=== PATIENT | male | born 1970 | race Caucasian/White ===

== ENCOUNTER 2020-02-13 08:57 | Outpatient (CLI) | payer OTHER, SELFPAY ==
--- NOTE | 2020-02-13 11:00 | NEURO_ITS ---
Patient Number: [id number] Impression: # Complains of severe back pain and leg pain. # Normal nerve conduction study including F-waves. # Normal needle/EMG exam without myotonia or denervation potentials. # Clinical correlation recommended. Nerve Conduction Studies Anti Sensory Summary Table Stim Site NR Peak (ms) P-T Amp (?V) Site1 Site2 Delta-P (ms) Dist (cm) Phill (m/s) Left Sup Fibular Anti Sensory (Ant Lat Mall) 14 cm 3.0 18.5 14 cm Ant Lat Mall 3.0 16.0 53 Right Sup Fibular Anti Sensory (Ant Lat Mall) 14 cm 3.1 7.4 14 cm Ant Lat Mall 3.1 16.0 52 Left Sural Anti Sensory (Lat Mall) Calf 3.6 5.6 Calf Lat Mall 3.6 16.0 44 Right Sural Anti Sensory (Lat Mall) Calf 3.2 8.7 Calf Lat Mall 3.2 16.0 50 Motor Summary Table Stim Site NR Onset (ms) O-P Amp (mV) Site1 Site2 Delta-0 (ms) Dist (cm) Phill (m/s) Left Peroneal Motor (Vastus Med) Ankle 4.4 2.7 Popit Ankle 10.8 45.0 42 Popit 15.2 2.1 Right Peroneal Motor (Vastus Med) Ankle 3.8 5.1 Popit Ankle 9.2 42.0 46 Popit 13.0 3.3 Left Tibial Motor (Abd Gutierrez Brev) Ankle 4.1 2.6 Knee Ankle 10.3 49.0 48 Knee 14.4 2.3 Right Tibial Motor (Abd Gutierrez Brev) Ankle 3.8 3.8 Knee Ankle 10.9 47.0 43 Knee 14.7 3.7 F Wave Studies NR F-Lat (ms) L-R F-Lat (ms) Left Peroneal (Mrkrs) (EDB) 56.03 0.46 Right Peroneal (Mrkrs) (EDB) 55.57 0.46 Left Tibial (Mrkrs) (Abd Hallucis) 55.94 0.20 Right Tibial (Mrkrs) (Abd Hallucis) 56.14 0.20 EMG Side Muscle Nerve Root Ins Act Fibs Amp Dur Recrt Comment Right AntTibialis Dp Br Fibular L4-5 Nml Nml Nml Nml Nml Right Gastroc Tibial S1-2 Nml Nml Nml Nml Nml Right Fibularis Long Sup Br Fibular L5-S1 Nml Nml Nml Nml Nml Right Flex Dig Long Tibial L5-S2 Nml Nml Nml Nml Nml Right Ext Dig Brev Dp Br Fibular L5, S1 Nml Nml Nml Nml Nml Left AntTibialis Dp Br Fibular L4-5 Nml Nml Nml Nml Nml Left Gastroc Tibial S1-2 Nml Nml Nml Nml Nml Left Fibularis Long Sup Br Fibular L5-S1 Nml Nml Nml Nml Nml Left Flex Dig Long Tibial L5-S2 Nml Nml Nml Nml Nml Left Ext Dig Brev Dp Br Fibular L5, S1 Nml Nml Nml Nml Nml Right QuadratusFem QuadFemoris L4-5, S1 Nml Nml Nml Nml Nml Left QuadratusFem QuadFemoris L4-5, S1 Nml Nml Nml Nml Nml MTDD
== END 2020-02-13 08:58 | disposition home or self-care (01) ==
PROVIDERS: PCP Nurse Practitioner Psychiatric/Mental Health; Visit Provider Nurse Practitioner Psychiatric/Mental Health
DX: M54.16 Radiculopathy, lumbar region (principal); G89.29 Other chronic pain; S34.9XXA Injury of unspecified nerves at abdomen, lower back and pelvis level, initial encounter
CPT/HCPCS: 95886; 95910

== ENCOUNTER → 2022-02-07 00:26 | Outpatient (CLI) | payer OTHER, SELFPAY ==
[2022-02-07 13:16] LABS: SARS-CoV-2 RNA PCR Negative
== END ==
PROVIDERS: PCP Internal Medicine; Visit Provider Internal Medicine Gastroenterology
DX: Z01.812 Encounter for preprocedural laboratory examination (principal); Z20.822 Contact with and (suspected) exposure to COVID-19
CPT/HCPCS: C9803; U0003; U0005

== ENCOUNTER 2022-02-10 01:20 | Day surgery (SDC) | payer OTHER, SELFPAY ==
[2022-02-10 08:32] VITALS: BMI 35.9
[2022-02-10 11:21] VITALS: BP 129/94; PULSE 79; RESP 14; TEMP 36.6; O2SAT 98
[2022-02-10] MEDS: LACTATED RINGERS 1,000 ML 150 ML IV CONT (11:34)
--- NOTE | 2022-02-10 11:53 | WPDGICN ---
Assessment and Plan Assessment and plan (1) Chest pain in adult: Code(s): R07.9 - Chest pain, unspecified Status: Acute Assessment and Plan: patient with atypical chest pain described as reflux. Plan is for EGD to assess more thoroughly this will be performed today. Previous trial of PPI and acid suppression is not clearly given him benefit. GI Consult Note Consult date/time: 02/10/22 11:53 HPI: Manjinder Boss is a 51 year old male Presents for EGD. Patient states he has a long history of respiratory difficulties. Over 5 years time has had frequent regurgitation. Occasional heartburn. Previously was given medications such as Prilosec with no significant change in symptoms. Because of ongoing respiratory difficulties he is referred now for an EGD. He has never had a prior EGD. Currently he takes no acid reducing medications. Any medicines he previously took were stopped a month and half to 2 months prior to this. He denies any dysphagia. He has had no bleeding or weight loss. Cologuard test last year was unremarkable. His family history is noncontributory. Patient presents today because of frequent reflux to exclude any organic disease of the upper GI tract. Review of Systems Review of Systems: All systems reviewed & are unremarkable except as noted in HPI and below PMFSH Past Medical History Medical History (Updated 01/30/22 @ 09:29 by Mehrdad Laws DO) Chest pain in adult PALACIO (dyspnea on exertion) Essential hypertension Family history of heart disease Mixed hyperlipidemia Obstructive sleep apnea Shortness of breath Surgical History Surgical History History of eye surgery History of repair of anterior cruciate ligament of right knee Family History Family History Father Diabetes mellitus Family history of malignant melanoma Other Family history of arthritis Family history of cardiovascular disease Family history of thyroid disease Hypertension Social History Social History Smoking status: Former smoker Tobacco type: smokeless tobacco Smokeless tobacco user: chewing tobacco Second hand tobacco smoke exposure: No Alcohol intake: current Alcohol use details: rarely Substance use: current Substance use type: does not use Living arrangements: with family Spiritual care concerns: No Meds Home Medications and Allergies Home Medications Medication Instructions Recorded Confirmed Type ibuprofen 800 mg tablet 800 mg PO PRN PRN tablet 11/06/19 02/10/22 History tramadol 50 mg tablet 50 mg PO .Q8 PRN tablet 11/06/19 01/30/22 History aspirin 81 mg tablet,delayed 81 mg PO DAILY #30 tablet 11/13/19 02/10/22 Rx release cyclobenzaprine 10 mg tablet 10 mg PO TID 05/07/20 02/10/22 History lidocaine 5 % topical gel 5 % TOPICAL .COMPLEX PRN gm 05/07/20 02/10/22 History cholecalciferol (vitamin D3) 50 50 mcg PO DAILY 01/30/22 02/10/22 History mcg (2,000 unit) capsule losartan 50 mg tablet 75 mg PO DAILY tablet 01/30/22 02/10/22 History omeprazole 40 mg capsule,delayed 40 mg PO DAILY 01/30/22 02/10/22 History release rosuvastatin 5 mg tablet 5 mg PO DAILY 01/30/22 02/10/22 History tramadol 50 mg tablet 50 mg PO Q6H PRN 01/30/22 02/10/22 History Allergies Allergy/AdvReac Type Severity Reaction Status Date / Time No Known Allergies Allergy Verified 02/10/22 11:21 Vital Signs Vital Signs - 24 hr 02/10/22 11:21 Temperature 97.8 F Pulse Rate 79 Respiratory Rate 14 Blood Pressure 129/94 H Pulse Oximetry 98 Exam Narrative: Physical exam reveals patient to be alert. Vital signs stable. HEENT exam is unremarkable. Patient is anicteric. Lungs are clear to auscultation and percussion. Heart is without murmur or extra sounds. Abdominal exam bowel sounds are
--- NOTE | 2022-02-10 12:09 | WPDANESEPPF ---
Anes - Initial Pre Proc Eval Procedure: Operation Date: 02/10/22 13:00 Proposed Procedures p Esophagogastroduodenoscopy - Mike Maddox MD Date/Time: 02/10/22 12:09 Surgeon: Mike Maddox MD Pre Op Diagnosis: GERD Patient Data Age: 51 Gender: M Height: 1.88 m Weight: 122.9 kg Last Vital Signs Temp 97.8 F 02/10/22 11:21 Pulse 79 02/10/22 11:21 Resp 14 02/10/22 11:21 BP 129/94 H 02/10/22 11:21 Pulse Ox 98 02/10/22 11:21 Allergies Allergy/AdvReac Type Severity Reaction Status Date / Time No Known Allergies Allergy Verified 02/10/22 11:21 Home Medications Medication Instructions Recorded Confirmed Type ibuprofen 800 mg tablet 800 mg PO PRN PRN tablet 11/06/19 02/10/22 History tramadol 50 mg tablet 50 mg PO .Q8 PRN tablet 11/06/19 01/30/22 History aspirin 81 mg tablet,delayed 81 mg PO DAILY #30 tablet 11/13/19 02/10/22 Rx release cyclobenzaprine 10 mg tablet 10 mg PO TID 05/07/20 02/10/22 History lidocaine 5 % topical gel 5 % TOPICAL .COMPLEX PRN gm 05/07/20 02/10/22 History cholecalciferol (vitamin D3) 50 50 mcg PO DAILY 01/30/22 02/10/22 History mcg (2,000 unit) capsule losartan 50 mg tablet 75 mg PO DAILY tablet 01/30/22 02/10/22 History omeprazole 40 mg capsule,delayed 40 mg PO DAILY 01/30/22 02/10/22 History release rosuvastatin 5 mg tablet 5 mg PO DAILY 01/30/22 02/10/22 History tramadol 50 mg tablet 50 mg PO Q6H PRN 01/30/22 02/10/22 History Patient hx anesthesia problems: none Family hx anesthesia problems: none Results Review: All pre-operative results and documents have been reviewed as part of the pre-operative evaluation. [facility] Past Medical History Medical History (Updated 01/30/22 @ 09:29 by Mehrdad Laws DO) Chest pain in adult PALACIO (dyspnea on exertion) Essential hypertension Family history of heart disease Mixed hyperlipidemia Obstructive sleep apnea Shortness of breath Surgical History Surgical History History of eye surgery History of repair of anterior cruciate ligament of right knee Family History Family History Father Diabetes mellitus Family history of malignant melanoma Other Family history of arthritis Family history of cardiovascular disease Family history of thyroid disease Hypertension Social History Social History Smoking status: Former smoker Tobacco type: smokeless tobacco Smokeless tobacco user: chewing tobacco Second hand tobacco smoke exposure: No Alcohol intake: current Alcohol use details: rarely Substance use: current Substance use type: does not use Living arrangements: with family Spiritual care concerns: No Anes - Eval Final PreProcedure Day of Procedure 02/10/22 12:09 Patient weight: obese Heart: regular rate and rhythm Lungs: clear to auscultation Airway: Mallampati scale class III Neurological: alert and oriented Last oral intake: >/= 8 hours ASA classification: III Emergent: no Anesthetic plan: proceed Anesthesia type and monitoring: general GIVS and standard monitoring Results Review: All pre-operative results and documents have been reviewed as part of the pre-operative evaluation. Informed Consent: The patient's anesthetic plan and its attendant risks and benefits were discussed with the patient/family/POA. Questions were solicited and answers provided to the satisfaction of the patient/family/POA.
[2022-02-10 13:19] VITALS: BP 140/90; PULSE 96; RESP 15; O2SAT 97
[2022-02-10 13:29] VITALS: BP 151/94; PULSE 95; RESP 18; O2SAT 98
[2022-02-10 13:39] VITALS: BP 151/100; PULSE 98; RESP 19; O2SAT 98
== END 2022-02-10 14:01 | disposition home or self-care (01) ==
PROVIDERS: PCP Nurse Practitioner Family; Visit Provider Internal Medicine Gastroenterology
PROC: 0DJ08ZZ Inspection of Upper Intestinal Tract, Via Natural or Artificial Opening Endoscopic (ICD-10-PCS; CPT 43235; principal; 2022-02-10 13:00)
DX: K20.90 Esophagitis, unspecified without bleeding (principal); R07.9 Chest pain, unspecified; R06.00 Dyspnea, unspecified; I10 Essential (primary) hypertension; E78.2 Mixed hyperlipidemia; G47.33 Obstructive sleep apnea (adult) (pediatric)
CPT/HCPCS: 43239; 87081; J2704; J7120

== ENCOUNTER 2022-03-27 07:42 | Outpatient (CLI) | payer OTHER, SELFPAY ==
--- NOTE | 2022-03-27 07:52 | ECHO_ITS ---
Patient Info Name: Manjinder Boss Age: 51 years : 1970 Gender: Male Ht: 74 in Wt: 264 lbs BSA: 2.54 m2 HR: 87 bpm BP: 153 / 101 mmHg Technical Quality: Fair Exam Date: 03/27/2022 8:23 AM Exam Location: [facility] Patient Status: Outpatient Admit Date: 03/27/2022 Staff Ordering Physician: Mehrdad Laws DO Sandfill Operator Surface: Juvenal Jones RDCS, RT Attending Provider: Mehrdad Laws DO Referring Physician: Veto GUSTAFSON; Exam Type: CA echo dop color flow w con Study Info Indications I35.1 - Nonrheumatic aortic (valve) insufficiency Complete two-dimensional, color flow and Doppler transthoracic echocardiogram is performed. Strain analysis performed. Summary 1. Complete two-dimensional, color flow and Doppler transthoracic echocardiogram is performed. 2. Left ventricular chamber dimension is normal. 3. Ventricular septum is sigmoid shaped. No LVOT obstruction. 4. Left ventricular systolic function is normal, estimated at 60-65%. 5. There is mildly increased left ventricular wall thickness. 6. The left ventricular diastolic function is normal. 7. Tissue doppler is not performed. 8. Global longitudinal strain is abnormal at -11.2%. 9. Right ventricular chamber dimension is mildly enlarged. 10. There is mild aortic valve sclerosis. 11. There is trace aortic valve regurgitation. Left Ventricle Tissue doppler is not performed. Global longitudinal strain is abnormal at -11.2%. Ventricular septum is sigmoid shaped. No LVOT obstruction. Left ventricular chamber dimension is normal. Left ventricular systolic function is normal, estimated at 60-65%. There is mildly increased left ventricular wall thickness. The left ventricular diastolic function is normal. Right Ventricle Right ventricular chamber dimension is mildly enlarged. Right ventricular systolic function is normal. Left Atria Left atrial chamber dimension is normal. Right Atria Right atrial chamber dimension is normal. Aortic Valve The aortic valve is trileaflet. There is mild aortic valve sclerosis. There is no aortic valve stenosis. There is trace aortic valve regurgitation. Pulmonic Valve There is no pulmonic regurgitation. Mitral Valve There is no mitral valve stenosis. There is no mitral valve regurgitation. Tricuspid Valve There is no tricuspid valve regurgitation. Pericardium/Pleural There is no pericardial effusion. Inferior Vena Cava Normal inferior vena cava with >50% collapse upon inspiration consistent with normal right atrial pressure, 5 mmHg. Aorta The aortic root size at the sinus of Valsalva is normal. Left Ventricular Outflow Tract Name Value Normal LVOT 2D LVOT Diameter 2.03 cm LVOT Doppler LVOT Peak Gradient 7 mmHg LVOT Mean Gradient 4 mmHg LVOT VTI 28.77 cm LVOT VTI/AV VTI Ratio 0.66 LVOT Stroke Volume 92.72 ml LVOT CO 7.86 l/min LVOT CI 3.10 L/min/m2 Tricuspid Valve
== END 2022-03-27 07:43 | disposition home or self-care (01) ==
LOC: ANHCARD 07:42
PROVIDERS: PCP Nurse Practitioner Family; Visit Provider Internal Medicine Cardiovascular Disease
DX: I35.1 Nonrheumatic aortic (valve) insufficiency (principal); I70.0 Atherosclerosis of aorta
CPT/HCPCS: C8929

== ENCOUNTER 2022-04-02 00:42 | Day surgery (SDC) | payer OTHER, SELFPAY ==
--- NOTE | 2022-04-01 13:06 | SUR.PREOP ---
This rn attempted pre-op phone call, left message on machine of time of arrival, npo after mn, and medications he can take before hand. Left call-back number if he would mind going over past medical hx and medications with us.
[2022-04-02] VITALS (9 sets, daily range): BP systolic 132–175; BP diastolic 88–107; PULSE 68–90; RESP 11–17; TEMP 36.3; O2SAT 94–97; BMI 34.0
[2022-04-02 08:51] LABS: Basophils Absolute Auto 0.1 K/mm3 (0.0-0.1); Basophils Percent Auto 0.8 % (0.2-1.2); Eosinophils Absolute Auto 0.2 K/mm3 (0-0.3); Eosinophils Percent Auto 2.3 % (0-4.4); Hematocrit 43.7 % (42.0-52.0); Hemoglobin 14.5 g/dL (14.0-18.0); Immature Granulocyte Absolute 0.06 K/mm3 (0.00-0.031); Immature Granulocyte Percent A 0.7 % (0-0.5); Lymphocytes Absolute Auto 3.09 K/mm3 (0.9-3.2); Lymphocytes Percent Auto 33.6 % (18.3-44.2); Mean Corpuscular HGB Conc 33.2 g/dl (32-36); Mean Corpuscular Hemoglobin 29.1 pg (26-34); Mean Corpuscular Volume 87.8 fl (80-100); Monocytes Absolute Auto 0.5 K/mm3 (0.1-0.6); Monocytes Percent Auto 5.5 % (2.6-8.5); Neutrophils Absolute Auto 5.3 K/mm3 (1.3-6.7); Neutrophils Percent Auto 57.1 % (45.5-73.1); Platelet Count Result 328 k/mm3 (150-375); Red Blood Count 4.98 M/mm3 (4.6-6.20); White Blood Count 9.2 K/mm3 (4.5-10.0)
[2022-04-02 09:02] LABS: INR 1.1; Prothrombin Time 13.3 Seconds (11.1-14.7)
[2022-04-02 09:04] LABS: Anion Gap 12 mmol/L (8-16); Blood Urea Nitrogen 18 mg/dL (9-20); Calcium 9.6 mg/dL (8.4-10.2); Carbon Dioxide 28 mmol/L (22-30); Chloride 101 mmol/L (98-107); Estimated Glomerular Filt Rate > 60; Glucose 122 mg/dL (65-110); Potassium 4.1 mmol/L (3.4-5.0); Sodium 141 mmol/L (137-145)
--- NOTE | 2022-04-02 11:43 | WPDHPUPDATE1 ---
History and Physical Update Update Date/Time: 04/02/22 11:43 History and Physical has been reviewed, including an updated exam of the patient. There are NO changes in the patient's condition. Risks, benefits, and alternatives have been discussed and questions answered. Patient agrees to proceed with procedure.
--- NOTE | 2022-04-02 11:43 | WPDMODSED ---
Moderate Sedation Note-Pt Data Patient Data Allergies Allergy/AdvReac Type Severity Reaction Status Date / Time No Known Allergies Allergy Verified 03/19/22 14:50 Home Medications Medication Instructions Recorded Confirmed Type ibuprofen 800 mg tablet 800 mg PO PRN PRN tablet 11/06/19 04/02/22 History tramadol 50 mg tablet 50 mg PO .Q8 PRN tablet 11/06/19 04/02/22 History aspirin 81 mg tablet,delayed 81 mg PO DAILY #30 tablet 11/13/19 04/02/22 Rx release cyclobenzaprine 10 mg tablet 10 mg PO TID 05/07/20 04/02/22 History cholecalciferol (vitamin D3) 50 50 mcg PO DAILY 01/30/22 04/02/22 History mcg (2,000 unit) capsule losartan 50 mg tablet 75 mg PO DAILY tablet 01/30/22 04/02/22 History omeprazole 40 mg capsule,delayed 40 mg PO DAILY 01/30/22 04/02/22 History release rosuvastatin 5 mg tablet 5 mg PO DAILY 01/30/22 04/02/22 History Current Medications: Active Medications Sodium Chloride (Normal Saline Iv) 500 mls @ 100 mls/hr IV CONT .Q5H MACY Sedation/Anesthesia: No previous sedation/anesthesia problems (including family history). [facility] Past Medical History Medical History Chest pain in adult PALACIO (dyspnea on exertion) Essential hypertension Family history of heart disease Mixed hyperlipidemia Obstructive sleep apnea Shortness of breath Surgical History Surgical History History of eye surgery History of repair of anterior cruciate ligament of right knee Family History Family History Father Diabetes mellitus Family history of malignant melanoma Other Family history of arthritis Family history of cardiovascular disease Family history of thyroid disease Hypertension Social History Social History Smoking status: Never smoker Tobacco type: smokeless tobacco Smokeless tobacco user: chewing tobacco Second hand tobacco smoke exposure: No Alcohol intake: current Alcohol use details: rarely Substance use: current Substance use type: does not use Spiritual care concerns: No Mod Sed Physical Exam Physical Exam Pre Procedural Exam: Normal: Appearance, Eyes, Ears, Nose, Neck, Throat, Airway, Lungs, Heart Size, Heart Rate, Heart Rhythm, Neuro Exam, Abdomen, Liver, Kidneys, Spleen, Breasts, Genitalia, Extremities and Skin Hours since solid foods: 8 Hours since liquid intake: 8 Mallampati Classification: class 1 Internal Medicine - PN: Obj Da Vital Signs Vital Signs: Vital Signs - 24 hr 04/02/22 08:48 Temperature 36.3 C L Pulse Rate 90 Respiratory Rate 17 Blood Pressure 175/107 H Pulse Oximetry 95 Meds/Results Medications: Active Medications Generic Name Dose Route Start Last Admin Trade Name Freq PRN Reason Stop Dose Admin Sodium Chloride 500 mls @ 100 mls/hr 04/02/22 08:30 Normal Saline Iv IV CONT .Q5H MACY Labs CBC & Chem 7: 04/02/22 08:39 04/02/22 08:39 Labs: Laboratory Results - last 24 hr 04/02/22 04/02/22 04/02/22 08:39 08:39 08:39 WBC 9.2 RBC 4.98 Hgb 14.5 Hct 43.7 MCV 87.8 MCH 29.1 MCHC 33.2 RDW 12.0 Plt Count 328 MPV 9.0 Immature Gran % (Auto) 0.7 H Neut % (Auto) 57.1 Lymph % (Auto) 33.6 [place] % (Auto) 5.5 Eos % (Auto) 2.3 Baso % (Auto) 0.8 Lymph # (Auto) 3.09 [place] # (Auto) 0.5 Eos # (Auto) 0.2 Baso # (Auto) 0.1 Abs Immat Gran (auto) 0.06 H Absolute Neuts (auto) 5.3 Absolute Nucleated RBC 0.0 Nucleated RBC % 0.0 PT 13.3 INR 1.1 Sodium 141 Potassium 4.1 Chloride 101 Carbon Dioxide 28 Anion Gap 12 BUN 18 Creatinine 1.00 Estim Creat Clear Calc Not Reportable Estimated GFR > 60 Glucose 122 H Calcium 9.6 ASA Classification/Sedation ASA Clas
--- NOTE | 2022-04-02 11:45 | P.PCNCC_ITS ---
Cardiac Cath Procedure Note Date of procedure:: 04/02/22 Performing physician:: Odin Mitchell MD Indication:: abnormal CTA coronary angiogram, chest pain, shortness of breath Brief clinical history:: this is 51-year-old patient past history of hyperlipidemia who has been having chest pain, shortness of breath. Underwent CTA coronary angiogram that shows high calcium score. The left circumflex artery and RCA were not filled suggestive of significant disease. Procedure Procedure performed:: 1-Moderate sedation that started at 11:02 a.m.and ended at 11:41 a.m. with total duration 39 minutes using 2mg of Versed and 50mcg fentanyl. The registered nurse marla melara. 2-Selective left and right coronary angiogram. 3-Left heart catheterization with measurement of LVEDP and measurement of gradient across aortic valve. 4- LV angiogram 4-Right common femoral arterial angiogram. 5-Deployment of 6 Austrian Angio-Seal. Sedation/Medication given:: Moderate sedation. Access site:: Right common femoral artery. Estimated blood loss:: 10cc Procedure note:: After informed consent patient was brought in to labor economics teacher with the was draped and prepped in usual manner. Moderate sedation was given and the right groin was infiltrated using 1% lidocaine. Five Austrian sheath was obtained using micropuncture needle and the modified Seldinger technique. Selective left coronary angiogram was done using JL4 catheter with the tip of the catheter placed in the left main coronary artery. Selective right coronary angiogram was done using JR4 catheter with the tip of the catheter placed to the right coronary artery. After that 5 Austrian pigtail catheter was advanced across the aortic valve into the left ventricle with measurement of LVEDP and measurement of gradient across aortic valve. Right common femoral arterial angiogram was done. Findings:: 1- left coronary artery is a large artery that divides into large LAD, large circumflex artery. Left main has diffuse 30% stenosis in the mid to distal segment. 2- left anterior descending artery is a large artery . Tortuous. has a focal stenosis of about 70-80% before diagonal branch. 3- leftcircumflex artery is a large artery And severe 90% disease in the mid segment. 4- right coronary artery is medium in size. Ostial 50%. Distally it is occluded with left to right collaterals 5- LVEDP was 14 mm Hg and no gradient across aortic valve. 6- opening arterial pressure was 160/90 and closing pressure [id number]. 7- LV angiogram shows normal LV systolic function with no wall motion abnormalities. Ascending aorta appears to be normal. 7- right femoral artery angiogram shows no significant disease in the right common femoral artery. Conclusion:: - Severe 3 vessel disease. - normal LV systolic function. Assessment and Plan Additional Plan will refer patient for consideration for CABG. - continue aspirin statin. - avoid other NSAIDs
== END 2022-04-02 14:45 | disposition home or self-care (01) ==
PROVIDERS: PCP Nurse Practitioner Family; Visit Provider Internal Medicine Cardiovascular Disease
PROC: 4A023N7 Measurement of Cardiac Sampling and Pressure, Left Heart, Percutaneous Approach (ICD-10-PCS; CPT 93452; principal; 2022-04-02 10:00)
DX: I25.10 Atherosclerotic heart disease of native coronary artery without angina pectoris (principal); R93.1 Abnormal findings on diagnostic imaging of heart and coronary circulation; R07.9 Chest pain, unspecified; R06.02 Shortness of breath; I10 Essential (primary) hypertension; G47.33 Obstructive sleep apnea (adult) (pediatric); E78.2 Mixed hyperlipidemia; Z82.49 Family history of ischemic heart disease and other diseases of the circulatory system; F17.220 Nicotine dependence, chewing tobacco, uncomplicated
CPT/HCPCS: 36415; 80048; 85025; 85610; 93458; C1887; C1894; J0583; J1644; J2250; J3010; J7040